=== PATIENT | male | born 1970 | race Caucasian/White ===

== ENCOUNTER 2017-11-12 22:15 | Emergency (ER) | payer OTHER ==
[~2017-11-12] VITALS: Ht 193 cm; Wt 130.2 kg
[~2017-11-12 22:15] MED LIST: ANAPROX DS550 MG PO; MOTRIN800 MG PO
[2017-11-12] MEDS ORDERED: AUGMENTIN 875875 MG PO (23:18)
[2017-11-12] MEDS ORDERED: ANTIBIOTIC28.4 GM T (23:18)
== END 2017-11-12 23:57 | disposition home or self-care (01) ==
LOC: ED 22:15
DX: S61.452A Open bite of left hand, initial encounter (principal); S61.552A Open bite of left wrist, initial encounter; S51.852A Open bite of left forearm, initial encounter; W55.01XA Bitten by cat, initial encounter; Y93.89 Activity, other specified; Y92.009 Unspecified place in unspecified non-institutional (private) residence as the place of occurrence of the external cause; Y99.8 Other external cause status

== ENCOUNTER 2019-10-16 13:43 | Emergency (ER) | payer OTHER ==
[~2019-10-16] VITALS: Ht 193 cm; Wt 127.0 kg
[~2019-10-16 13:43] MED LIST changes: +ANTIBIOTIC28.4 GM T; +AUGMENTIN 875875 MG PO
[2019-10-16 15:17] LABS: BASO # 0.1 10*3/uL (0.0-0.1); BASO % 0.7 % (0.0-1.0); EOS # 0.1 10*3/uL (0.0-0.4); EOS % 1.5 % (1.0-4.0); HEMATOCRIT 44.7 % (42.0-52.0); LYMPH # 1.6 10*3/uL (1.3-4.4); MEAN CELL VOLUME 85.6 fl (80.0-94.0); MEAN CORPUSCULAR HGB 28.5 pg (27.0-31.0); MEAN CORPUSCULAR HGB CONC 33.3 g/dl (33.0-37.0); MEAN PLATELET VOLUME 9.1 fl (9.6-12.3); MONO # 0.7 10*3/uL (0.1-1.0); MONO % 9.8 % (3.0-9.0); NEUT # 4.8 10*3/uL (2.3-7.9); NEUT % 65.7 % (47.0-73.0); PLATELET COUNT AUTOMATED 317 10*3/uL (130-400); RED BLOOD COUNT 5.22 10*6/uL (4.50-5.90); RED CELL DISTRI WIDTH 12.6 % (0-14.5); WHITE BLOOD COUNT 7.2 10*3/uL (4.8-10.8)
[2019-10-16 15:29] LABS: ACT PARTIAL THROMBO TIME 25.8 SECONDS (20.0-32.1)
[2019-10-16 15:34] LABS: ALBUMIN 3.6 gm/dl (3.1-4.5); ALKALINE PHOSPHATASE 83 U/L (45-117); BUN 17 mg/dl (7-24); CHLORIDE 105 mmol/L (98-107); CREATININE 1.08 mg/dL (0.70-1.30); POTASSIUM 3.8 mmol/L (3.5-5.1); SGOT/AST 27 IU/L (3-35); SGPT/ALT 83 U/L (12-78); SODIUM 136 mmol/L (136-145); TOTAL PROTEIN 7.5 gm/dL (6.4-8.2)
[2019-10-16 15:50] LABS: TROPONIN I < 0.015 ng/ml (<0.045)
[2019-10-16 16:07] LABS: URINE AMPHETAMINES < 1000 (1000ng/ml); URINE BARBITURATES < 200 (200ng/ml); URINE BENZODIAZEPINES < 200 (200ng/ml); URINE CANNABINOIDS (THC) > 50 (50ng/ml); URINE COCAINE < 300 (300ng/ml); URINE METHADONE < 300 (300ng/ml); URINE OPIATES < 300 (300ng/ml)
[2019-10-16 16:08] LABS: URINE PHENCYCLIDINE < 25 (25ng/ml)
== END 2019-10-16 17:57 | disposition home or self-care (01) ==
LOC: ED 13:43
PROVIDERS: Internal Medicine
DX: R20.0 Anesthesia of skin (principal); H57.89 Other specified disorders of eye and adnexa; R79.1 Abnormal coagulation profile; K21.9 Gastro-esophageal reflux disease without esophagitis